=== PATIENT | female | born 1995 | race Caucasian/White ===

== ENCOUNTER 2024-08-03 11:01 | Emergency (ER) | payer SELFPAY ==
[2024-08-03 11:07] VITALS: BP 120/80; PULSE 71; TEMP 36.8; O2SAT 96; BMI 33.2
--- NOTE | 2024-08-03 11:24 | XRR_ITS ---
PROCEDURE INFORMATION: Exam: XR Right Foot Exam date and time: 08/03/2024 11:25 AM Age: 29 years old Clinical indication: Pain; Foot; Right; Additional info: Pain to lateral foot TECHNIQUE: Imaging protocol: Radiologic exam of the right foot. Views: 3 or more views. COMPARISON: No relevant prior studies available. FINDINGS: Bones/joints: Negative for acute abnormality. Soft tissues: Normal. XR/XR foot RT min 3V* [id number] IMPRESSION: No acute findings.
--- NOTE | 2024-08-03 12:00 | W.ED.EXTPRO ---
HPI - Extremity Problem General: Chief complaint: Extremity Injury, Lower Stated complaint: R foot pain Time Seen by Provider: 08/03/24 11:04 History of Present Illness: Patient is a 29-year-old female who presents with right foot pain following an [place] that [place]. Patient reports twisting her foot during the incident. She has been unable to ambulate well since the injury. Patient notes a previous history of hairline fracture in the same area when she was younger. She has taken two hydrocodone tablets for pain management since the injury. 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 Related Data Home Medications ?Medication ?Instructions ?Recorded ?Confirmed No Known Home Medications 08/03/24 08/03/24 Allergies Allergy/AdvReac Type Severity Reaction Status Date / Time No Known Allergies Allergy Verified 08/03/24 11:12 Physical Exam Const: COMMON NORMALS: no acute distress, average body habitus, alert and well nourished GENERAL APPEARANCE: cooperative ORIENTATION/CONSCIOUSNESS: Yes awake HENMT: COMMON NORMALS: normocephalic and atraumatic HEAD & SCALP: normocephalic and atraumatic Eye: COMMON NORMALS: conjunctivae normal CONJUNCTIVA: Yes conjunctivae normal Neck/C-Spine: GENERAL: Yes normal visual inspection Resp: COMMON NORMALS: normal respiratory effort, No retractions and No use of accessory muscles Cardio: COMMON NORMALS: regular rhythm and Peripheral pulses 2+ throughout RHYTHM: regular rhythm PERIPHERAL PULSES: Peripheral pulses 2+ throughout GI: COMMON NORMALS: Soft to palpation and non-tender PALPATION: Yes Soft to palpation Extremity: COMMON NORMALS: full ROM and no pedal edema OTHER: ttp over the lateral aspect of the right foot. Neuro: COMMON NORMALS: no focal motor deficits SENSORIUM/ORIENTATION: Yes alert Skin: COMMON NORMALS: no rashes or lesions noted GENERAL SKIN EXAM: no rashes or lesions noted Course Vital Signs: Vital signs: Vital Signs Temperature 98.2 F 08/03/24 11:07 Pulse Rate 71 08/03/24 11:07 Blood Pressure 120/80 08/03/24 11:07 Pulse Oximetry 96 08/03/24 11:07 Oxygen Delivery Me thod Room Air 08/03/24 11:07 MDM - Extremity (Nontraumatic) Medical Decision Making ROS: Limited review of systems due to focused examination for acute injury. 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 Mucous membranes moist Neck: Supple Respiratory: No increased work of breathing, No wheezing Cardiac: Regular rate and rhythm, 2+ pulses in all extremities Abdomen: Soft, non-distended, no rebound or guarding Neuro: Cranial nerves grossly intact, no focal motor or sensory deficits noted Musculoskeletal: - Right foot: Mild tenderness and bruising to the lateral aspect, specifically at the base of the fifth metatarsal - No malleolar tenderness - No proximal fibular tenderness - Normal sensation to light touch - Able to wiggle toes - Intact distal pulses INITIAL IMPRESSION AND PLAN: Given the history and presentation, the primary working diagnosis is right foot injury, possible fifth metatarsal fracture. Additional considerations include ligamentous injury, soft tissue contusion. Plan: 1. X-ray of right foot 2. Provide ambulatory assistance devices 3. Consider post-op shoe or walking boot based on X-ray findings TEST INTERPRETATIONS: Right foot X-ray: No obvious fracture, dislocation, or acute injury identified. CONSIDERED BUT NOT PERFORMED: CT imaging was considered but not performed due to negative X-ray findings and ability to follow up with podiatry for further evaluation if symptoms persist. FINAL IMPRESSION: Based on all the above, my clinical impression is most compatible with right foot sprain/contusion. The clinical picture is not currently suggestive of fracture or ligamentous disruption requiring immediate surgical intervention. Although other conditions were also considered, they were deemed unlikely based on the clinical information available. CLINICAL DISPOSITION: The patient's current condition is stable in my estimation and the most appropriate and indicated disposition at this time is discharge home with podiatry follow-up. Rationale for safe discharge: Patient has normal neurovascular status, no evidence of fracture on imaging, ability to bear weight with assistive devices, and has appropriate follow-up arranged. Patient demonstrates understanding of care plan and return precautions. RISK STRATIFICATION AND CLINICAL DECISION RULES APPLIED: [place] [facility]le Rules applied - Patient had lateral foot tenderness prompting X-ray imaging which was negative for acute fracture. CASE SUMMARY: 29-year-old female [employer] presented with right foot pain after twisting injury while running on sand two days ago. Physical exam revealed tenderness and mild bruising to the lateral foot without ankle involvement. X-ray showed no acute fracture. Patient was provided with crutches and post-op shoe, along with instructions for RICE therapy (Rest, Ice, Compression, Elevation). Discharged home with podiatry follow-up and appropriate return precautions. Lab Data Radiology Impressions Foot X-Ray 08/03/24 11:24 IMPRESSION: No acute findings. All radiology interpretation(s) finalized by discharge Discharge Plan Discharge Patient Disposition: Home Clinical Impression: Foot sprain Qualifiers: Encounter type: initial encounter Laterality: right Qualified Code(s): S93.601A - Unspecified sprain of right foot, initial encounter Condition: Stable Prescriptions: No Action No Known Home Medications Discharge Orders: Discharge ED (Routine); Ordered 08/03/24 Ordered By: Joon Hutton Referrals: Duarte William DPM [Physician, Podiatry] Clinical Impression: Foot sprain Discharge Activity: Use walker/crutches as instructed Patient Instructions: Foot Sprain (ED), Opioid Safety, Pain Management Activity Restrictions/Additional Instructions: DISCHARGE INSTRUCTIONS: 1. Follow RICE therapy: Rest the foot, apply Ice for 20 minutes every 2-3 hours, use Compression wrap, and Elevate the foot above heart level when possible. 2. Use provided crutches and post-op shoe as directed. May bear weight as tolerated with these assistive devices. 3. Follow up with Dr. William (Podiatry) this week. 4. Return to the Emergency Department if you develop: severe worsening pain, numbness/tingling, color changes in toes, or inability to move toes. 5. [id number] pain medications may be used as directed on the package. Print Language: [place] Coding Level of Care Code ED Jewel Hole Cornerer for Jong Ortiz
[2024-08-03 12:15] VITALS: BP 112/75; PULSE 68; O2SAT 92
== END 2024-08-03 12:16 | disposition home or self-care (01) ==
PROVIDERS: Emergency Provider Student in an Organized Health Care Education/Training Program
DX: S93.601A Unspecified sprain of right foot, initial encounter (principal); X50.1XXA Overexertion from prolonged static or awkward postures, initial encounter; Y93.02 Activity, running; Y92.828 Other wilderness area as the place of occurrence of the external cause
CPT/HCPCS: 73630; 99283; E0114